=== PATIENT | male | born 1945 | race American Indian/Alaskan Native ===

== ENCOUNTER 2019-05-23 18:49 | Observation (INO) | payer MEDICARE ==
--- NOTE | 2019-05-23 19:28 | Emergency Department Report ---
ED Chest Pain HPI - General Stated Complaint: CHEST PAIN Time Seen by Provider: 05/23/19 19:23 Source: patient, EMS, claims processor Mode of arrival: Stretcher Limitations: Language Barrier - History of Present Illness Initial Comments: Patient is a 74-year-old male that presents emergency room with complaints of shortness of breath, palpitations, racing heart, dizziness and chest pain. Patient states his symptoms started 1 hour prior to arrival. Patient states that his chest pain is intermittent. Patient states at this time he does not have any chest pain. Patient states that his chest pain, shortness of breath, palpitations, racing heart, dizziness improved with rest and when he presses the red button on his Zoll LifeVest. Patient states over the last few hours appro ximately 11 times the patient's LifeVest has had a strange flashing red light. Patient states that when he presses the red flashing button that his symptoms improved. Patient states when the flashing red button goes off he gets short of breath, palpitations, racing heart and dizziness. Patient states at this moment he is not having any symptoms. Patient states he is not sure why the LifeVest i s doing this. Patient states he was in the hospital from last Tuesday to Tuesday and was discharged approximately 24 hours ago. Patient states he was here for chest pain and shortness of breath. Patient brought in by EMS. Report received from EMS. EMS states that the patient had a run of SVT for approximately 3 to 4 minutes just prior to arrival. EMS states the patient became completely short of breath and diaphoretic during the episode. MD Complaint: chest pain Onset: during rest Pain Location: substernal, left chest Severity: severe Quality: sharp Consistency: constant Improves With: rest Worsens With: exertion re: dyspnea Other Symptoms: denies: cough, fever, syncope, rash, acid taste in mouth, leg swelling, palpitations, burping Treatments Prior to Arrival: aspirin Aspirin use within the Past 7 Days: (1) Yes - Related Data On Oral Contraceptives: No Home Medications Medication Instructions Recorded Confirmed Last Taken Omeprazole 20 mg PO DAILY 05/21/19 05/24/19 05/23/19 Previous Rx's Medication Instructions Recorded Last Taken Type Aspirin EC [Halfprin EC] 81 mg PO QDAY #30 tablet 05/23/19 Unknown Rx oxyCODONE /ACETAMINOPHEN [Percocet 1 tab PO Q6H PRN #8 tablet 05/23/19 Unknown R x 5/325 mg] verapamiL [Calan] 120 mg PO Q6HR #120 tablet 05/23/19 05/23/19 Rx Allergies Allergy/AdvReac Type Severity Reaction Status Date / Time No Known Allergies Allergy Verified 05/18/19 01:07 Heart Score - HEART Score History: Highly suspicious EKG: Non-specific Age: > 65 Risk factors: > 3 risk factors or hx of atherosclerotic disease Troponin: < normal limit HEART Score: 7 ED Review of Systems ROS: Stated complaint: CHEST PAIN Other details as noted in HPI Constitutional: denies: chills, fever Eyes: denies: eye pain, eye discharge, vision change ENT: denies: ear pain, throat pain Respiratory: denies: cough, shortness of breath, wheezing Cardiovascular: chest pain. denies: palpitations Endocrine: no symptoms reported Gastrointestinal: denies: abdominal pain, nausea, diarrhea Genitourinary: denies: urgency, dysuria Musculoskeletal: denies: back pain, joint swelling, arthralgia Skin: denies: rash, lesions Neurological: denies: headache, weakness, paresthesias Psychiatric: denies: anxiety, depression Hematological/Lymphatic: denies: easy bleeding, easy bruising ED Past Medical Hx - Past Medical History Previous Medical History?: Yes Hx Hypertension: Yes Hx Congestive Heart Failure: Yes Hx GERD: Yes - Surgical History Past Surgical History?: Yes - Family History Family history: no significant - Social History Smoking Status: Never Smoker Substance Use Type: None - Medications Home Medications: Home Medications Medication Instructions Recorded Confirmed Last Taken Type Omeprazole 20 mg PO DAILY 05/21/19 05/24/19 05/23/19 History Aspirin EC [Halfprin EC] 81 mg PO QDAY #30 tablet 05/23/19 05/24/19 Unknown Rx oxyCODONE /ACETAMINOPHEN [Percocet 1 tab PO Q6H PRN #8 tablet 05/23/19 05/24/19 Unknown Rx 5/325 mg] verapamiL [Calan] 120 mg PO Q6HR #120 tablet 05/23/19 05/24/19 05/23/19 Rx ED Physical Exam - General Limitations: Language Barrier General appearance: alert, in no apparent distress - Head Head exam: Present: atraumatic, normocephalic - Eye Eye exam: Present: normal appearance - ENT ENT exam: Present: mucous membranes moist - Neck Neck exam: Present: normal inspection - Respiratory Respiratory exam: Present: normal lung sounds bilaterally. Absent: respiratory distress, wheezes, rales, rhonchi, stridor - Cardiovascular Cardiovascular Exam: Present: regular rate, normal rhythm. Absent: systolic murmur, diastolic murmur, rubs, gallop - GI/Abdominal GI/Abdominal exam: Present: soft, normal bowel sounds. Absent: distended, tenderness, guarding - Rectal Rectal exam: Present: deferred - Extremities Exam Extremities exam: Present: normal inspection - Back Exam Back exam: Present: normal inspection - Neurological Exam Neurological exam: Present: alert, oriented X3 - Psychiatric Psychiatric exam: Present: normal affect, normal mood - Skin Skin exam: Present: warm, dry, intact, normal color. Absent: rash ED Course Vital Signs 05/23/19 05/23/19 05/23/19 19:15 20:45 21:01 Temperature 98.7 F Pulse Rate 88 80 Respiratory 16 19 Rate Blood Pressure 116/77 O2 Sat by Pulse 92 Oximetry 05/23/19 05/23/19 05/23/19 21:13 21:15 21:31 Temperature Pulse Rate 82 74 79 Respiratory 19 19 18 Rate Blood Pressure 116/77 116/77 116/77 O2 Sat by Pulse 94 94 95 Oximetry 05/23/19 05/23/19 05/23/19 21:45 22:01 22:15 Temperature Pulse Rate 73 79 77 Respiratory 19 15 18 Rate Blood Pressure 116/77 119/77 119/77 O2 Sat by Pulse 94 94 94 Oximetry 05/23/19 05/23/19 05/23/19 22:31 22:45 23:01 Temperature Pulse Rate 71 65 65 Respiratory 19 19 16 Rate Blood Pressure 119/77 119/77 132/69 O2 Sat by Pulse 94 95 93 Oximetry 05/23/19 05/23/19 05/23/19 23:15 23:31 23:45 Temperature Pulse Rate 65 61 65 Respiratory 13 17 18 Rate Blood Pressure 132/69 132/69 132/69 O2 Sat by Pulse 95 96 94 Oximetry 05/24/19 05/24/19 05/24/19 00:01 00:15 00:31 Temperature Pulse Rate 71 54 L 70 Respiratory 17 18 15 Rate Blood Pressure 147/99 147/99 147/99 O2 Sat by Pulse 97 94 96 Oximetry - Reevaluation(s) Reevaluation #1: I discussed all results with patient. I discussed plan of care with patient. Patient agrees with plan of care and admission. Patient to be admitted to the hospitalist service. Patient will be placed on a amiodarone drip after the bolus. 05/23/19 23:02 - Consultations Consultation #1: Discussed case with [employer]est textiles sales representative. Is always going to send a textiles sales representative out here to interrogate the patient's LifeVest. The textiles sales representative states that the patient most likely was being delivered a shock for a shockable rhythm. Reservations Sales Supervisor states it would take about 24 hours for a rep to get to the hospital. 05/23/19 22:16 Consultation #2: hospitalist consulted for admission. Hospitalist to admit patient. Bridge orders placed. 05/23/19 22:27 Consultation #3: I discussed the case with Dr. Dheeraj Marie, cardiology. Cardiology does not r ecommend any further interventions or treatment. Cardiology has accepted the consult. 05/23/19 23:30 RONNI score - Ronni Score Age > 65: (1) Yes Aspirin use within the Past 7 Days: (1) Yes 3 or more CAD Risk Factors: (1) Yes 2 or more Angina events in past 24 hrs: (1) Yes Known CAD with more than 50% Stenosis: (0) No Elevated Cardiac Markers: (0) No ST Deviation Greater than 0.5mm: (0) No RONNI Score: 4 ED Medical Decision Making - Lab Data Result diagrams: 05/23/19 20:34 05/23/19 22:50 - EKG Data -: EKG Interpreted by [facility] EKG shows normal: sinus rhythm, axis, intervals, QRS complexes, ST-T waves Rate: normal - Radiology Data Radiology results: report reviewed CHEST 1 VIEW INDICATION / CLINICAL INFORMATION: Chest Pain. COMPARISON: None available. FINDINGS: SUPPORT DEVICES: None. HEART / MEDIASTINUM: Borderline-enlarged. LUNGS / PLEURA: No significant pulmonary or pleural abnormality. No pneumothorax. ADDITIONAL FINDINGS: No significant additional findings. IMPRESSION: 1. No acute findings. - Medical Decision Making Patient is a 74-year-old male that presents emergency room with complaints of sh ortness of breath, chest pain, dizziness, palpitations, racing heart. Patient also stated that the Zoll LifeVest that he is wearing had flashing red lights when the symptoms will come on and patient would press the red button and his symptoms would stop. Patient states this went on approximately 11 times. Patient was also in the hospital recently for V. tach and placed on amiodarone. Patient was given amiodarone IV. Cardiology was consulted and no further recommendations were recommended by cardiology. [employer] was contacted for a textiles sales representative to come out and interrogate and assistance with obtaining interrogation and the rhythm strips and defibrillation activity of the Zoll vest. The textiles sales representative will arrive in the hospital within 24 hours. The hospitalist service was consulted for admission. Patient admitted to the ICU. Patient's labs are unremarkable. Patient chest x-ray is negative. Patient's EKG is negative for STEMI - Differential Diagnosis Arrhythmia, V. tach, SVT, SOB, palpitations, chest pain Critical Care Time: Yes Critical care time in (mins) excluding proc time.: 65 Critical care attestation.: If time is entered above; I have spent that time in minutes in the direct care of this critically ill patient, excluding procedure time. Critical Care Time: 65 minutes ED Disposition Clinical Impression: SOB (shortness of breath), Palpitations, Uses LifeVest defibrillator Arrhythmia Qualifiers: Arrhythmia type: unspecified cardiac arrhythmia Qualified Code(s): I49.9 - Cardiac arrhythmia, unspecified Chest pain Qualifiers: Chest pain type: unspecified Qualified Code(s): R07.9 - Chest pain, unspecified Disposition: 09 OP ADMIT IP TO THIS HOSP Is pt being admited?: Yes Does the pt Need Aspirin: No Condition: Critical Time of Disposition: 22:23
[2019-05-23] MEDS ORDERED: ASPIRIN 325 MG TAB PO ONE (19:51)
--- NOTE | 2019-05-23 20:33 | XRay Report ---
CHEST 1 VIEW INDICATION / CLINICAL INFORMATION: Chest Pain. COMPARISON: None available. FINDINGS: SUPPORT DEVICES: None. HEART / MEDIASTINUM: Borderline-enlarged. LUNGS / PLEURA: No significant pulmonary or pleural abnormality. No pneumothorax. ADDITIONAL FINDINGS: No significant additional findings. IMPRESSION: 1. No acute findings. Signer Name: Federico Lagunas MD Signed: 05/23/2019 8:29 PM Workstation Name: [id number]
[2019-05-23 21:16] LABS: Basophils % (Auto) 0.2 % (0.0-1.8); Eosinophils # (Auto) 0.1 K/mm3 (0.0-0.4); Eosinophils % (Auto) 0.7 % (0.0-4.3); Hematocrit 46.7 % (35.5-45.6); Hemoglobin 15.9 gm/dl (11.8-15.2); Lymphocytes # (Auto) 0.6 K/mm3 (1.2-5.4); Lymphocytes % (Auto) 6.2 % (13.4-35.0); Mean Corpuscular HGB Conc 34 % (32-34); Mean Corpuscular Volume 93 fl (84-94); Monocytes % (Auto) 10.7 % (0.0-7.3); Platelet Count 264 K/mm3 (140-440); Red Blood Count 5.04 M/mm3 (3.65-5.03); Red Cell Distribution Width 13.7 % (13.2-15.2)
[2019-05-23 21:26] LABS: INR 0.99 (0.87-1.13)
[2019-05-23 21:27] LABS: Partial Thromboplastin Time 35.7 Sec. (24.2-36.6)
[2019-05-23] MEDS ORDERED: AMIODARONE 150 MG in DEXTROSE 5% IN WATER 97 ML IV ONE (22:26)
[2019-05-23] MEDS ORDERED: AMIODARONE 900 MG in DEXTROSE 5% IN WATER 482 ML IV SCH (23:00)
[2019-05-23] MEDS ORDERED: ASPIRIN 325 MG TAB ONE (23:59)
[2019-05-24 00:20] LABS: Alanine Aminotransferase 32 units/L (7-56); Albumin 3.8 g/dL (3.9-5); BUN/Creatinine Ratio 15; Blood Urea Nitrogen 17 mg/dL (9-20); Calcium 8.8 mg/dL (8.4-10.2); Hemolysis Index 8
[2019-05-24] MEDS ORDERED: ACETAMINOPHEN 325 MG TAB PO PRN (00:39)
[2019-05-24] MEDS ORDERED: oxyCODONE /ACETAMINOPHEN 5-325MG TAB PO PRN (00:39)
[2019-05-24] MEDS ORDERED: MAGNESIUM HYDROXIDE (MOM) ORAL LIQD UDC PO PRN (00:46)
[2019-05-24] MEDS ORDERED: MORPHINE 2 MG/1 ML INJ IV PRN (00:46)
[2019-05-24] MEDS ORDERED: NALOXONE 0.4 MG/1 ML INJ IV PRN (00:46)
[2019-05-24] MEDS ORDERED: METOCLOPRAMIDE 10 MG/2 ML INJ IV PRN (00:49)
--- NOTE | 2019-05-24 00:58 | History and Physical Report ---
History of Present Illness Date of examination: 05/23/19 Date of admission: 05/23/19 22:34 Chief complaint: "MY Life Vest has fired 11 times History of present illness: Patient is a 74-year-old male with PMH of ischemic CM, Paroxysmal Vtach, Systolic CM EF 35%, Deafness who just was admitted from 05/18/19-05/23/19 returns to the ED on the same day as he was discharged with complaints of shortness of breath, palpitations, racing heart, and that his machine has shocked him 11 times'' He is strongly sure of this number . Using the Portable Video sign loading machine adjuster, pt was interviewed and examined by me. He says he is fine and denies any syncope, dysuria, polyuria, fever, chills, cough, N, V, melena, hematochezia, neck/jaw pain or numbness. Patient states his symptoms started 1 hour prior to arrival. Patient states that his chest pain is intermittent and now he has slight back pain. Patient states at this time he does not have any chest pain. Patient states that his chest pain, shortness of breath, palpitations, racing heart, dizziness improved with rest and when he presses the red button on his [employer] LifeVest. Patient states over the last few hours approximately 11 times the patient's LifeVest has had a strange flashing red light. Patient states that when he presses the red flashing button that his symptoms improved. Patient states when the flashing red button goes off he gets short of breath, palpitations, racing heart and dizziness. Patient states at this moment he is not having any symptoms. Patient feels his machine is malfuctioning. During his last hospitalization, Pt was evaluated by Cardiology and they recommended: Continue Verapamil for suppression of paroxysmal SVT. Lifevest before discharge. Stable cardiac montemayor. Outpatient cardiac MRI followed by possible EP study, possible ablation if his heart is structurally normal. Patient will f/u in our office June 04 at [address] Wilson. In the ED, Cardiology was consulted- Dr Marie. Amiodarone Gtt started. [employer] personnel was notified and someone from the company will be here within 24 hours according to the ED physician recommending admission. Past History Past Medical History: arrhythmia, hypertension Social history: full code. denies: smoking, alcohol abuse, prescription drug abuse, IV drug use Family history: hypertension Medications and Allergies Allergies Allergy/AdvReac Type Severity Reaction Status Date / Time No Known Allergies Allergy Verified 05/18/19 01:07 Home Medications Medication Instructions Recorded Confirmed Last Taken Type Omeprazole 20 mg PO DAILY 05/21/19 05/21/19 05/16/19 History Aspirin EC [Halfprin EC] 81 mg PO QDAY #30 tablet 05/23/19 Unknown Rx oxyCODONE /ACETAMINOPHEN [Percocet 1 tab PO Q6H PRN #8 tablet 05/23/19 Unknown Rx 5/325 mg] verapamiL [Calan] 120 mg PO Q6HR #120 tablet 05/23/19 Unknown Rx Active Meds: Active Medications Acetaminophen (Tylenol) 650 mg PO Q6H PRN PRN Reason: Pain MILD(1-3)/Fever >100.5/CESAR Amiodarone HCl 900 mg/ (Dextrose) 500 mls @ 33.333 mls/hr IV DIRECT EBONY; Protocol Last Admin: 05/23/19 23:42 Dose: 1 mg/min, 33.333 mls/hr Documented by: Magnesium Hydroxide (Milk Of Magnesia) 30 ml PO Q4H PRN PRN Reason: Constipation Metoclopramide HCl (Reglan) 10 mg IV Q6H PRN PRN Reason: Nausea And Vomiting Morphine Sulfate (Morphine) 2 mg IV Q4H PRN PRN Reason: Pain, Moderate (4-6) Naloxone HCl (Naloxone) 0.1 mg IV Q2MIN PRN PRN Reason: Res Rate </= 8 or 02 SAT < 92% Oxycodone/Acetaminophen (Percocet 5/325) 1 tab PO Q6H PRN PRN Reason: Pain, Moderate (4-6) Sodium Chloride (Sodium Chloride Flush Syringe 10 Ml) 10 ml IV BID EBONY Sodium Chloride (Sodium Chloride Flush Syringe 10 Ml) 10 ml IV PRN PRN PRN Reason: LINE FLUSH Review of Systems All systems: negative Constitutional: fatigue, weakness Exam - Constitutional Vitals: Temp Pulse Resp BP Pulse Ox 98.7 F 70 15 147/99 96 05/23/19 19:15 05/24/19 00:31 05/24/19 00:31 05/24/19 00:31 05/24/19 00:31 General appearance: Present: no acute distress, well-nourished - EENT Eyes: Present: PERRL ENT: hearing intact, clear oral mucosa - Neck Neck: Present: supple, normal ROM - Respiratory Respiratory effort: normal Respiratory: bilateral: CTA Details: LIfe vest present externally over pt's torso - Cardiovascular Heart Sounds: Present: S1 & S2. Absent: rub, click - Extremities Extremities: pulses symmetrical, No edema Peripheral Pulses: within normal limits - Abdominal General gastrointestinal: Present: soft, non-tender, non-distended, normal bowel sounds Male genitourinary: Present: normal - Integumentary Integumentary: Present: clear, warm, dry - Musculoskeletal Musculoskeletal: gait normal, strength equal bilaterally - Psychiatric Psychiatric: appropriate mood/affect, intact judgment & insight - Neurologic Neurologic: CNII-XII intact, moves all extremities RONNI score - Ronni Score Age > 65: (1) Yes Aspirin use within the Past 7 Days: (1) Yes 3 or more CAD Risk Factors: (1) Yes 2 or more Angina events in past 24 hrs: (1) Yes Known CAD with more than 50% Stenosis: (0) No Elevated Cardiac Markers: (0) No ST Deviation Greater than 0.5mm: (0) No RONNI Score: 4 Results - Labs CBC & Chem 7: 05/23/19 20:34 05/23/19 22:50 Labs: Laboratory Last Values WBC 8.9 K/mm3 (4.5-11.0) 05/23/19 20:34 RBC 5.04 M/mm3 (3.65-5.03) H 05/23/19 20:34 Hgb 15.9 gm/dl (11.8-15.2) H 05/23/19 20:34 Hct 46.7 % (35.5-45.6) H 05/23/19 20:34 MCV 93 fl (84-94) 05/23/19 20:34 MCH 32 pg (28-32) 05/23/19 20:34 MCHC 34 % (32-34) 05/23/19 20:34 RDW 13.7 % (13.2-15.2) 05/23/19 20:34 Plt Count 264 K/mm3 (140-440) 05/23/19 20:34 Lymph % (Auto) 6.2 % (13.4-35.0) L 05/23/19 20:34 Bucks % (Auto) 10.7 % (0.0-7.3) H 05/23/19 20:34 Eos % (Auto) 0.7 % (0.0-4.3) 05/23/19 20:34 Baso % (Auto) 0.2 % (0.0-1.8) 05/23/19 20:34 Lymph # 0.6 K/mm3 (1.2-5.4) L 05/23/19 20:34 Bucks # 1.0 K/mm3 (0.0-0.8) H 05/23/19 20:34 Eos # 0.1 K/mm3 (0.0-0.4) 05/23/19 20:34 Baso # 0.0 K/mm3 (0.0-0.1) 05/23/19 20:34 Seg Neutrophils % 82.2 % (40.0-70.0) H 05/23/19 20:34 Seg Neutrophils # 7.3 K/mm3 (1.8-7.7) 05/23/19 20:34 PT 13.2 Sec. (12.2-14.9) 05/23/19 20:34 INR 0.99 (0.87-1.13) 05/23/19 20:34 APTT 35.7 Sec. (24.2-36.6) 05/23/19 20:34 Sodium 138 mmol/L (137-145) 05/23/19 22:50 Potassium 4.0 mmol/L (3.6-5.0) 05/23/19 22:50 Chloride 100.1 mmol/L (98-107) 05/23/19 22:50 Carbon Dioxide 25 mmol/L (22-30) 05/23/19 22:50 Anion Gap 17 mmol/L 05/23/19 22:50 BUN 17 mg/dL (9-20) 05/23/19 22:50 Creatinine 1.1 mg/dL (0.8-1.5) 05/23/19 22:50 Estimated GFR > 60 ml/min 05/23/19 22:50 BUN/Creatinine Ratio 15 % 05/23/19 22:50 Glucose 96 mg/dL (75-100) 05/23/19 22:50 POC Glucose 90 (70-105) 05/23/19 22:50 Calcium 8.8 mg/dL (8.4-10.2) 05/23/19 22:50 Magnesium 2.20 mg/dL (1.7-2.3) 05/23/19 22:50 Total Bilirubin 0.60 mg/dL (0.1-1.2) 05/23/19 22:50 AST 30 units/L (5-40) 05/23/19 22:50 ALT 32 units/L (7-56) 05/23/19 22:50 Alkaline Phosphatase 57 units/L (35-129) 05/23/19 22:50 Troponin T < 0.010 ng/mL (0.00-0.029) 05/23/19 22:50 Total Protein 7.0 g/dL (6.3-8.2) 05/23/19 22:50 Albumin 3.8 g/dL (3.9-5) L 05/23/19 22:50 Albumin/Globulin Ratio 1.2 % 05/23/19 22:50 Assessment and Plan Assessment and plan: Paroxysmal Vtachycardia - unclear if its a lifevest malfunction vs due to underlying cardiac cause. Monitoring Qt as pt has a hx of prolonged QT. Avoid Qt prolonging agent. -Electrolytes are all WNL as well as Troponin. Await further Troponins - Admit to the ICU with close monitoring - ECG in the am - cardiology consulted - continue Amiodarone Gtt Ischemic CM - EF 35% -Non obstructive CAD noted during Cardiac Angiogram done done within this past week - continue telemonitoring Deafness - chronic - pls Use video interior design coordinator otherwise pt will get frustrated. Full code Advance Directives: Yes
[2019-05-24 05:58] LABS: Basophils % (Auto) 0.4 % (0.0-1.8); Eosinophils # (Auto) 0.1 K/mm3 (0.0-0.4); Eosinophils % (Auto) 1.3 % (0.0-4.3); Hemoglobin 14.3 gm/dl (11.8-15.2); Lymphocytes # (Auto) 0.8 K/mm3 (1.2-5.4); Lymphocytes % (Auto) 12.5 % (13.4-35.0); Mean Corpuscular HGB Conc 33 % (32-34); Mean Corpuscular Volume 93 fl (84-94); Monocytes # (Auto) 0.8 K/mm3 (0.0-0.8); Monocytes % (Auto) 12.6 % (0.0-7.3); Platelet Count 230 K/mm3 (140-440); Red Blood Count 4.62 M/mm3 (3.65-5.03); Red Cell Distribution Width 13.4 % (13.2-15.2)
[2019-05-24] MEDS: VERAPAMIL 120 MG TAB PO SCH ×2 (06:00→15:59)
[2019-05-24 06:17] LABS: BUN/Creatinine Ratio 15; Blood Urea Nitrogen 17 mg/dL (9-20); Calcium 8.6 mg/dL (8.4-10.2); Hemolysis Index 5
--- NOTE | 2019-05-24 07:44 | Consultation ---
History of Present Illness Consult date: 05/24/19 Requesting physician: PINO ULLOA Reason for consult: other (Critical care admisssion for Vfib) History of present illness: Patient is a 74-year-old male with PMH of ischemic CM, Paroxysmal Vtach, Systolic CM EF 35%, Deafness who just was admitted from 05/18/19-05/23/19 returns to the ED on the same day as he was discharged with complaints of shortness of breath, palpitations, racing heart, and that his machine has shocked him 11 times'' He is lying quietly in bed, not in any distress. He wants to know what to do with his box. He denies any chest pain, no shortness Past History Past Medical History: arrhythmia, hypertension Social history: full code. denies: smoking, alcohol abuse, prescription drug abuse, IV drug use Family history: hypertension Medications and Allergies Allergies Allergy/AdvReac Type Severity Reaction Status Date / Time No Known Allergies Allergy Verified 05/18/19 01:07 Home Medications Medication Instructions Recorded Confirmed Last Taken Type Omeprazole 20 mg PO DAILY 05/21/19 05/24/19 05/23/19 History Aspirin EC [Halfprin EC] 81 mg PO QDAY #30 tablet 05/23/19 05/24/19 Unknown Rx oxyCODONE /ACETAMINOPHEN [Percocet 1 tab PO Q6H PRN #8 tablet 05/23/19 05/24/19 Unknown Rx 5/325 mg] verapamiL [Calan] 120 mg PO Q6HR #120 tablet 05/23/19 05/24/19 05/23/19 Rx Acetaminophen [Acetaminophen TAB] 650 mg PO Q6H PRN tablet 05/24/19 Unknown Rx Magnesium Hydroxide [Milk of 30 ml PO Q4H PRN oral.liqd 05/24/19 Unknown Rx Magnesia] Metoclopramide [Reglan INJ] 10 mg IV Q6H PRN vial 05/24/19 Unknown Rx Active Meds: Active Medications Acetaminophen (Tylenol) 650 mg PO Q6H PRN PRN Reason: Pain MILD(1-3)/Fever >100.5/CESAR Aspirin (Halfprin Ec) 81 mg PO QDAY EBONY Amiodarone HCl 900 mg/ (Dextrose) 500 mls @ 33.333 mls/hr IV DIRECT EBONY; Protocol Last Titration: 05/24/19 04:45 Dose: 1 mg/min, 33.333 mls/hr Documented by: Magnesium Hydroxide (Milk Of Magnesia) 30 ml PO Q4H PRN PRN Reason: Constipation Metoclopramide HCl (Reglan) 10 mg IV Q6H PRN PRN Reason: Nausea And Vomiting Morphine Sulfate (Morphine) 2 mg IV Q4H PRN PRN Reason: Pain, Moderate (4-6) Naloxone HCl (Naloxone) 0.1 mg IV Q2MIN PRN PRN Reason: Res Rate </= 8 or 02 SAT < 92% Oxycodone/Acetaminophen (Percocet 5/325) 1 tab PO Q6H PRN PRN Reason: Pain, Moderate (4-6) Pantoprazole Sodium (Protonix) 20 mg PO QDAY EBONY Sodium Chloride (Sodium Chloride Flush Syringe 10 Ml) 10 ml IV BID EBONY Sodium Chloride (Sodium Chloride Flush Syringe 10 Ml) 10 ml IV PRN PRN PRN Reason: LINE FLUSH Verapamil HCl (Calan) 120 mg PO Q6HR [facility] Last Admin: 05/24/19 06:00 Dose: Not Given Documented by: Review of Systems Constitutional: no weight loss, no weight gain, no fever, no chills, no sweats, no night sweats Cardiovascular: no chest pain, no edema, no lightheadedness, no shortness of breath Respiratory: no cough, no excessive sputum, no hemoptysis Gastrointestinal: no abdominal pain, no nausea, no vomiting, no diarrhea, no constipation Genitourinary Male: no dysuria, no hematuria, no nocturia Neurological: no transient paralysis, no paralysis, no parathesias, no numbness, no syncope Psychiatric: no anxiety, no memory loss, no insomnia Endocrine: no polyphagia, no polydipsia Hematologic/Lymphatic: no easy bruising, no easy bleeding Allergic/Immunologic: no urticaria, no allergic rhinitis, no wheezing Physical Examination Vital signs: Vital Signs Temp 98.7 F 05/23/19 19:15 General appearance: Present: no acute distress, well-nourished - EENT Eyes: Present: PERRL ENT: hearing intact, clear oral mucosa - Neck Neck: Present: supple, normal ROM - Respiratory Respiratory effort: normal Respiratory: bilateral: CTA Details: LIfe vest present externally over patinet's torso - Cardiovascular Heart Sounds: Present: S1 & S2. Absent: rub, click - Extremities Extremities: pulses symmetrical, No edema Peripheral Pulses: within normal limits - Abdominal General gastrointestinal: Present: soft, non-tender, non-distended, normal bowel sounds Male genitourinary: Present: normal - Integumentary Integumentary: Present: clear, warm, dry - Musculoskeletal Musculoskeletal: gait normal, strength equal bilaterally - Psychiatric Psychiatric: appropriate mood/affect, intact judgment & insight - Neurologic Neurologic: CNII-XII intact, moves all extremities Results - Laboratory Findings CBC and BMP: 05/24/19 04:51 05/24/19 04:51 PT/INR, D-dimer PT 13.2 Sec. (12.2-14.9) 05/23/19 20:34 INR 0.99 (0.87-1.13) 05/23/19 20:34 Abnormal lab findings: Abnormal Labs 05/23/19 05/23/19 05/24/19 20:34 22:50 04:51 RBC 5.04 H Hgb 15.9 H Hct 46.7 H Lymph % (Auto) 6.2 L 12.5 L Ponce % (Auto) 10.7 H 12.6 H Lymph # 0.6 L 0.8 L Ponce # 1.0 H Seg Neutrophils % 82.2 H 73.2 H Albumin 3.8 L Assessment and Plan Ischemic CM, Paroxysmal Vtach, Systolic CM EF 35%, Deafness -Awaiting interogation of his device -Discussed with him using the translation line that once the interrogation is done and Cardiology reviews it then we have a better sense of his treatment options -Conitue ICU admission, await final Cardiology recommendations
[2019-05-24] MEDS ORDERED: NON-FORMULARY EACH (Omeprazole [Omeprazole] 20 MG) PO SCH (10:00)
[2019-05-24] MEDS ORDERED: PANTOPRAZOLE 20 MG TAB PO SCH (10:00)
[2019-05-24] MEDS ORDERED: ASPIRIN EC 81 MG TAB PO SCH (10:00)
--- NOTE | 2019-05-24 13:37 | Discharge Summary ---
Providers - Providers Date of Admission: 05/23/19 22:34 Date of discharge: 05/24/19 Attending physician: PINO ULLOA 05/23/19 22:52 Consult to Physician [CONS] Routine Comment: Consulting Provider: VIVIANA WINTERS Physician Instructions: Reason For Exam: icu admit 05/23/19 23:32 Consult to Physician [CONS] Routine Comment: Dr. Clarke spoke with Dr. Marie @ [phone] Consulting Provider: BRADEN MARIE Physician Instructions: Reason For Exam: vtach Primary care physician: PUTTY MAKER Hospitalization Condition: Fair Hospital course: Patient 74-year-old male with a history of ischemic cardiomyopathy paroxysmal ventricular tachycardia congestive heart failure ejection fraction 35% presents the day after having LifeVest placed stating palpitations. Upon presentation LifeVest was evaluated and did not have any abnormal activity. Patient felt that the vest was not working because of the light. Patient in no time had any chest pain while present. Was evaluated by cardiology and stated he can be discharged with follow-up MRI cardiac MRI as outpatient basis. Patient was to continue amiodarone which was started here as well as verapamil and follow-up cardiology office in 2 weeks. Patient did not have any episodes of tachycardia shortness of breath throughout stay. Disposition: DC-01 TO HOME OR SELFCARE - Discharge Diagnoses (1) Arrhythmia Status: Acute Qualifiers: Arrhythmia type: unspecified cardiac arrhythmia Qualified Code(s): I49.9 - Cardiac arrhythmia, unspecified (2) Chest pain Status: Acute Qualifiers: Chest pain type: unspecified Qualified Code(s): R07.9 - Chest pain, unspecified (3) Uses LifeVest defibrillator Status: Acute (4) Chronic systolic (congestive) heart failure Status: Acute (5) Ventricular tachycardia Status: Acute Core Measure Documentation - Palliative Care Palliative Care/ Comfort Measures: Not Applicable - Core Measures Any of the following diagnoses?: none Exam - Constitutional Vitals: Temp Pulse Resp BP Pulse Ox 98.7 F 79 17 151/80 93 05/24/19 12:52 05/24/19 13:00 05/24/19 13:00 05/24/19 13:00 05/24/19 13:00 General appearance: Present: no acute distress, well-nourished - EENT Eyes: Present: PERRL ENT: hearing intact, clear oral mucosa - Neck Neck: Present: supple, normal ROM - Respiratory Respiratory effort: normal Respiratory: bilateral: CTA - Cardiovascular Heart Sounds: Present: S1 & S2. Absent: rub, click - Extremities Extremities: pulses symmetrical, No edema Peripheral Pulses: within normal limits - Abdominal General gastrointestinal: Present: soft, non-tender, non-distended, normal bowel sounds Male genitourinary: Present: normal - Integumentary Integumentary: Present: clear, warm, dry - Musculoskeletal Musculoskeletal: gait normal, strength equal bilaterally - Psychiatric Psychiatric: appropriate mood/affect, intact judgment & insight - Neurologic Neurologic: CNII-XII intact, moves all extremities Plan Activity: advance as tolerated Weight Bearing Status: Weight Bear as Tolerated Diet: low fat, low cholesterol Follow up with: PRIMARY CARE, [Primary Care Provider] - 3-5 Days
--- NOTE | 2019-05-24 15:06 | Consultation ---
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 Patient was admitted to this hospital with with hemodynamically stable paroxysmal fascicular ventricular tachycardia. He underwent a cardiac cath that revealed no significant CAD. An echocardiogram revealed mildly depressed EF of 45-50%. A lifevest was placed and the patient was discharged home on medical therapy with Verapamil. Patient returns less then 24 hours later with reports of SVT. Cardiac consultation has been reqeusted. An interrogation of the lifevest reveal the patient had no VT. He got a vibratory alert because one of the leads on the lifevest was not making good contact. Today, the patient appears comfortable. There are no reports of tachyarrhythmias seen on telemetry. Past History Past Medical History: arrhythmia, hypertension Social history: full code. denies: smoking, alcohol abuse, prescription drug abuse, IV drug use Family history: hypertension Medications and Allergies Allergies Allergy/AdvReac Type Severity Reaction Status Date / Time No Known Allergies Allergy Verified 05/18/19 01:07 Home Medications Medication Instructions Recorded Confirmed Last Taken Type Omeprazole 20 mg PO DAILY 05/21/19 05/24/19 05/23/19 History Aspirin EC [Halfprin EC] 81 mg PO QDAY #30 tablet 05/23/19 05/24/19 Unknown Rx oxyCODONE /ACETAMINOPHEN [Percocet 1 tab PO Q6H PRN #8 tablet 05/23/19 05/24/19 Unknown Rx 5/325 mg] verapamiL [Calan] 120 mg PO Q6HR #120 tablet 05/23/19 05/24/19 05/23/19 Rx Acetaminophen [Acetaminophen TAB] 650 mg PO Q6H PRN tablet 05/24/19 Unknown Rx Magnesium Hydroxide [Milk of 30 ml PO Q4H PRN oral.liqd 05/24/19 Unknown Rx Magnesia] Metoclopramide [Reglan INJ] 10 mg IV Q6H PRN vial 05/24/19 Unknown Rx Active Meds: Active Medications Acetaminophen (Tylenol) 650 mg PO Q6H PRN PRN Reason: Pain MILD(1-3)/Fever >100.5/CESAR Aspirin (Halfprin Ec) 81 mg PO QDAY EBONY Last Admin: 05/24/19 11:02 Dose: 81 mg Documented by: Magnesium Hydroxide (Milk Of Magnesia) 30 ml PO Q4H PRN PRN Reason: Constipation Metoclopramide HCl (Reglan) 10 mg IV Q6H PRN PRN Reason: Nausea And Vomiting Morphine Sulfate (Morphine) 2 mg IV Q4H PRN PRN Reason: Pain, Moderate (4-6) Naloxone HCl (Naloxone) 0.1 mg IV Q2MIN PRN PRN Reason: Res Rate </= 8 or 02 SAT < 92% Oxycodone/Acetaminophen (Percocet 5/325) 1 tab PO Q6H PRN PRN Reason: Pain, Moderate (4-6) Pantoprazole Sodium (Protonix) 20 mg PO QDAY [facility] Last Admin: 05/24/19 11:02 Dose: 20 mg Documented by: Sodium Chloride (Sodium Chloride Flush Syringe 10 Ml) 10 ml IV BID [facility] Last Admin: 05/24/19 11:02 Dose: 10 ml Documented by: Sodium Chloride (Sodium Chloride Flush Syringe 10 Ml) 10 ml IV PRN PRN PRN Reason: LINE FLUSH Verapamil HCl (Calan) 120 mg PO Q6HR [facility] Last Admin: 05/24/19 06:00 Dose: Not Given Documented by: Physical Examination Vital Signs Temp 98.7 F 05/23/19 19:15 General appearance: no acute distress HEENT: Positive: PERRL Neck: Positive: trachea midline Cardiac: Positive: Bradycardia Lungs: Positive: Decreased Breath Sounds Results 05/24/19 04:51 05/24/19 04:51 Cardiac Enzymes 05/23/19 Range/Units 22:50 AST 30 (5-40) units/L Coagulation 05/23/19 Range/Units 20:34 PT 13.2 (12.2-14.9) Sec. INR 0.99 (0.87-1.13) APTT 35.7 (24.2-36.6) Sec. CBC 05/23/19 05/24/19 Range/Units 20:34 04:51 WBC 8.9 6.7 (4.5-11.0) K/mm3 RBC 5.04 H 4.62 (3.65-5.03) M/mm3 Hgb 15.9 H 14.3 (11.8-15.2) gm/dl Hct 46.7 H 43.0 (35.5-45.6) % Plt Count 264 230 (140-440) K/mm3 Lymph # 0.6 L 0.8 L (1.2-5.4) K/mm3 [place] # 1.0 H 0.8 (0.0-0.8) K/mm3 Eos # 0.1 0.1 (0.0-0.4) K/mm3 Baso # 0.0 0.0 (0.0-0.1) K/mm3 Comprehensive Metabolic Panel 05/23/19 05/24/19 Range/Units 22:50 04:51 Sodium 138 138 (137-145) mmol/L Potassium 4.0 3.8 (3.6-5.0) mmol/L Chloride 100.1 101.2 (98-107) mmol/L Carbon Dioxide 25 22 (22-30) mmol/L BUN 17 17 (9-20) mg/dL Creatinine 1.1 1.1 (0.8-1.5) mg/dL Glucose 96 99 (75-100) mg/dL Calcium 8.8 8.6 (8.4-10.2) mg/dL AST 30 (5-40) units/L ALT 32 (7-56) units/L Alkaline Phosphatase 57 (35-129) units/L Total Protein 7.0 (6.3-8.2) g/dL Albumin 3.8 L (3.9-5) g/dL Assessment and Plan Hx of hemodynamically stable paroxysmal fascicular VT Cardiac cath 05/18/19 showed non-obstructive coronary artery disease. EF 45-50% Lifevest is in place -interrogation this admission reports no evidence of VT. Recommend: Discontinue amiodarone. Continue Verapamil for suppression of paroxysmal fascicular VT. Stable cardiac montemayor for discharge. Patient will follow up in our office as scheduled.
[2019-05-24 15:14] VITALS: BP 128/72
== END 2019-05-24 17:00 | disposition home or self-care (01) ==
LOC: ED 18:49 → INTOOBSV 22:34 → CC1 22:34
PROVIDERS: ADMIT Hospitalist; ATTEND Internal Medicine
DX: I47.2 Ventricular tachycardia (principal); I49.9 Cardiac arrhythmia, unspecified; I25.5 Ischemic cardiomyopathy; I11.0 Hypertensive heart disease with heart failure; I50.9 Heart failure, unspecified; R94.31 Abnormal electrocardiogram [ECG] [EKG]; H91.90 Unspecified hearing loss, unspecified ear; K21.9 Gastro-esophageal reflux disease without esophagitis; Z95.810 Presence of automatic (implantable) cardiac defibrillator; Z79.82 Long term (current) use of aspirin; Z79.899 Other long term (current) drug therapy
CPT/HCPCS: 36415; 71045; 80048; 80053; 82330; 82962; 83735; 84100; 84484; 85025; 85610; 85730; 87116; 93005; 93010; 94760; 96374; 99291; G0378; J0282; J7060